=== PATIENT | female | born 1955 | race Caucasian/White ===

== ENCOUNTER 2017-06-16 09:09 | Day surgery (SDC) | payer MEDICAID ==
[2017-06-16] MEDS ORDERED: PROPOFOL 10 MG/ML VIAL IV ONE (14:29)
[2017-06-16] MEDS ORDERED: LIDOCAINE 2% MDV (20MG/ML) 20ML VIAL IV ONE (14:29)
--- NOTE | 2017-06-19 12:30 | Operative Note ---
DATE OF SURGERY: 06/16/2017 SURGEON: Yao Zapata MD OPERATION: 1. ESOPHAGOGASTRODUODENOSCOPY. 2. COLONOSCOPY. INDICATIONS: This is a 62-year-old female with a history of early satiety and abdominal pain who had blood in the stool and now presented for both esophagogastroduodenoscopy and colonoscopy. POSTOPERATIVE DIAGNOSES: 1. Mild Z line irregularity. 2. Gastric bezoar. 3. Gastritis. 4. Normal duodenum. 5. Left-sided colonic diverticulosis. 6. Grade 2 internal hemorrhoids. ANESTHESIA: Sedation is per Anesthesia. Pulse oximetry was monitored throughout the procedures to maintain O2 saturation of 90% or greater. Supplemental oxygen was administered via nasal cannula. Cardiac and vital signs were monitored throughout the duration of the procedures, and they were stable. The procedures of esophagogastroduodenoscopy and colonoscopy and risks and benefits of the procedures, including the risk of bleeding and perforation, among others, were explained to the patient who voiced understanding and desired to have the procedures done. Physical examination was performed, and the patient was found stable for sedation. PROCEDURE: The patient was placed in the left lateral position. Sedation was initiated. A plastic bite block was inserted into the oral cavity. The Olympus VIH152 gastroscope was introduced into the oral cavity and advanced to the proximal esophagus without difficulty. The esophageal mucosa was carefully examined upon introduction of the gastroscope. The proximal, mid, and distal esophageal mucosa appeared normal. There was an irregular Z line that was noted. The gastroscope was then advanced into the stomach, and surveillance of the stomach revealed a large amount of gastric bezoar in the stomach with erythema involving the gastric body and antrum. The gastroscope was then advanced to the descending duodenum without difficulty. There was no gastric outlet obstruction noted. The duodenal bulb and descending duodenum appeared normal. The gastroscope was then withdrawn into the stomach and retroflexion was performed. Food remnant was noted in the gastric fundus. The gastroscope was then straightened and withdrawn while carefully examining the gastric and esophageal mucosa. No other lesions noted. Multiple duodenal and gastric biopsies were obtained. She remained with stable vital signs and was repositioned for colonoscopy. A digital rectal exam was performed and showed some mild external hemorrhoids with no palpable rectal masses. An Olympus PCF-180AL colonoscope was then inserted into the rectum under direct visualization. It was advanced to the cecum without difficulty. The ileocecal valve and appendiceal orifice were identified and photographed. The colonic mucosa was carefully examined upon introduction of the colonoscope. There were scattered diverticula noted in the sigmoid and descending colon. There were no other lesions noted. The colonoscope was then advanced to the distal ileum and it was inspected for about 10 cm and it appeared normal. The colonoscope was then withdrawn while carefully examining the colonic mucosal surfaces. No other lesions were noted. Multiple random biopsies were obtained. In the rectum, retroflexion was performed and grade 2 internal hemorrhoids were noted. The colonoscope was then withdrawn and the procedures were terminated. She remained with stable vital signs and was transferred to the recovery room. RECOMMENDATIONS: 1. The patient should be on a high-fiber diet. 2. The patient is to have a repeat colonoscopy in 3 years because of the suboptimal bowel preparation. 3. I will obtain gastric emptying studies. 4. I will see her in the office. Thank you for allowing me to participate in the care of your patient. CC: Trena MURPHY
== END 2017-06-16 11:02 | disposition home or self-care (01) ==
LOC: HOP 09:09
PROVIDERS: ATTEND Internal Medicine Gastroenterology
DX: K31.89 Other diseases of stomach and duodenum (principal); K92.1 Melena; T18.2XXA Foreign body in stomach, initial encounter; K29.70 Gastritis, unspecified, without bleeding; K57.30 Diverticulosis of large intestine without perforation or abscess without bleeding; K64.1 Second degree hemorrhoids; I10 Essential (primary) hypertension; K21.9 Gastro-esophageal reflux disease without esophagitis

== ENCOUNTER 2017-08-17 06:35 | Inpatient (IN) | payer MEDICAID ==
[~2017-08-17 06:35] MED LIST: ACETAMINOPHEN 1,000 MG/100 ML BTL IV ONE; CEFAZOLIN 2 Gram 2 GM/50 ML BAG IVPB ONE; FAMOTIDINE 20MG TABLET PO ONE; MECLIZINE 25 MG TABLET PO ONE; METOCLOPRAMIDE 10 MG TABLET PO ONE
[2017-08-17] MEDS ORDERED: AL HYDROX/MAG HYDROX 30ML UD PO PRN (11:30)
[2017-08-17] MEDS ORDERED: TRAMADOL HCL 50 MG TABLET PO PRN (11:30)
[2017-08-17] MEDS ORDERED: SENNOSIDES/DOCUSATE SODIUM UD CAPSULE PO PRN (11:30)
[2017-08-17] MEDS ORDERED: DIPHENHYDRAMINE HCL 25 MG CAPSULE PO PRN (11:30)
[2017-08-17] MEDS ORDERED: ZOLPIDEM TARTRATE 5 MG TABLET PO PRN (11:30)
[2017-08-17] MEDS ORDERED: MAGNESIUM HYDROXIDE 30 ML UDC PO PRN (11:30)
[2017-08-17] MEDS: RINGERS SOLUTION,LACTATED 1,000 ML IV SCH (11:30)
[2017-08-17] MEDS ORDERED: METOCLOPRAMIDE HCL 10 MG/2 ML VIAL IVP PRN (11:30)
[2017-08-17] MEDS ORDERED: RINGERS SOLUTION,LACTATED 1,000 ML IV PRN (12:47)
[2017-08-17] MEDS ORDERED: TRANEXAMIC ACID 1,000 MG in 0.9 % SODIUM CHLORIDE 100ML 100 ML IVPB ONE (14:00)
[2017-08-17] MEDS: ACETAMINOPHEN 1,000 MG/100 ML BTL IV SCH ×2 (14:48→20:41)
[2017-08-17] MEDS ORDERED: BUPIVACAINE LIPOSOME 266MG/20ML VIAL IV ONE (14:59)
[2017-08-17] MEDS ORDERED: BUPIVACAINE 0.75% W/EPI MPF 30ML VIAL IVP ONE (14:59)
[2017-08-17] MEDS ORDERED: TRANEXAMIC ACID 1,000 MG/10 ML ML IV ONE (14:59)
[2017-08-17] MEDS: OXYCODONE HCL 5 MG TABLET PO PRN (15:01)
[2017-08-17] MEDS ORDERED: *PACU ONLY* KETAMINE HCL 10 MG/ML (20ML) VIAL IV ONE (15:23)
[2017-08-17] MEDS ORDERED: PROPOFOL 10 MG/ML VIAL IV ONE (15:23)
[2017-08-17] MEDS ORDERED: MIDAZOLAM HCL 2MG/2ML VIAL IV ONE (15:23)
[2017-08-17] MEDS ORDERED: HYDROMORPHONE HCL 2 MG/ML VIAL IV ONE (15:23)
[2017-08-17] MEDS: CEFAZOLIN 2 Gram 2 GM/50 ML BAG IVPB SCH (17:15)
--- NOTE | 2017-08-17 17:15 | Rehab Evaluation ---
Patient Information - Patient Information Diagnosis: OA Left Knee Ordered Treatment: PT Evaluate and Treat Status: Initial Evaluation Surgery: Yes (L TKA) Date of Surgery: 08/17/17 History: Detail Past Medical/Surgical Hx: PAST MEDICAL/SURGICAL HISTORY Surgery to Affected Area? Yes Recent Surgery? Past Surgical History lf knee surgery hysterectomy ovarian tumor sharron CATS brain aneurysm rt foot spur sx PMH - Respiratory Hx Respiratory Disorders Yes Hx Bronchitis Yes: x1 Hx Pneumonia Yes Comment: Quit smoking 3 yrs ago; 1ppdx 45 years PMH - Cardiovascular Hx Cardiovascular Disorders Yes Hx Hypertension Yes Exercise Tolerance Fair Comment: high cholesterol PMH - Neuro Hx Neurological Disorders Yes Hx Seizures Yes: after brain sx Comment: brain aneurysm x2 in 1998 with stm loss PMH - GI Hx Gastrointestinal Disorders Yes Hx Gastroesophageal Reflux Yes Hx Hepatitis/Jaundice Yes: at age 5 Comment: c/o slight burning mid epigastric PMH - Hx Genitourinary Disorders Yes Hx Age of Menopause 48 Patient No Hx Bladder Problem Yes: overactive bladder Comment: 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 PMH - Endocrine Hx Endocrine Disorders No PMH - Musculoskeletal Hx Musculoskeletal Disorders No Hx Arthritis Yes: left knee Comment: n/a PMH - Psych Hx Psychiatric Problems No Hx Depression Yes Major Depressive Episode Yes Comment: Depression 2013 after of nephew, daughter PMH - Hematology/Oncology Hx Hematology/Oncology No Disorders Hx Bruising Yes: bruises easily Social History: Detail (Pt. rates her current pain at 6/10 in her L knee, but reports she was given pain medication right before PT came in. Pt. reports she lives in a 1 story ranch style home with three steps with no hand railing to enter in from the garage and then one more step to enter into the kitchen. The patient reports she has a standard tub and shower and that she has to step over the tub to get into the shower. The pt. reports she will be borrowing a shower chair from a friend. The pt. states she does not have an elevated toilet seat or grab bars in the shower or next to the toilet. The pt. reports she has a walker, but is unsure what kind of walker it is when asked. The pt. is and reports her and other family/neighbors will be around to help as necessary. The pt. reports she does not use oxygen at home. 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 Pt. was left supine with CPM, IPCs, 2L of oxygen, and cold pack hooked up. Call light was made available and nursing was notified.) Subjective Information - Subjective Information Per Patient (See social history.) Objective Data - Pain Pain Present: Yes Pain Intensity: 6 Pain Scale Used: Numeric (1 - 10) - Mental Status Patient Orientation: Oriented x3 - Visual Perception Appears within normal limits for therapeutic activities - ROM Other (UE AROM was WNL. R LE AROM was WFL. L LE was not assessed at this time.) - Strength/Tone Other (Bilateral UEs are WFL for using her walker. LEs were not tested at this time. Pt. performed I SLR with the operative LE when transitioning the leg back into the CPM.) - Coordination Appears within normal limits for therapeutic activities - Bed Mobility Needs Assist (Pt. required the use of the overhead trapeze to scoot up and down in bed. PT provided min assist x1 to guard pt.'s L LE to ensure safe movements were made. Pt. grabbed onto PTs hand to help pull herself up for a supine to sit transfer, but was able to independently use the foot behind hook method to swing her L LE to the side of the bed to be able to sit up on the edge of the bed. Once back in bed, the pt. required the use of the trapeze to help her scoot up in bed and to assist lifting herself so the CPM machine could be repositioned.) - Transfers Independent (Pt. was able to complete sit to stand transfer independently with verbal cueing to push up with one hand on the bed and the other on the walker for a safe transfer. Pt. completed an independent sit to stand and stand to sit transfer onto and off the toilet as well as back onto her bed. Pt. was able to independently use the hook behind swing method to get her L LE back into bed with minimal assist x1 of the PT guarding the L LE.) - Balance Balance Sitting: Good (Sitting balance was good, but the patient reported slight dizziness upon sitting up from the supine position for about 5 seconds. Pt. dropped to 88% O2 sat with room air while supine and was given nasal cannula with 2L O2 throughout tx session, and she remained at 95% O2 saturation. ) Balance Standing: Good (Standing balance was good, but the pt. did report slight dizziness upon standing that lasted about 5 seconds.) - Sensation Intact - Gait Detail (Pt. was able to ambulate to and from the toilet independently with CGA x1 with the use of a front wheeled walker. Pt. required verbal cueing to know which leg she should lead with when ambulating with the walker.) - ADL's/IADL's Detail (Pt. I donned and doffed her undergarment.) - Special Tests No Therapy Assessment - Therapy Assessment Detail (Pt. exhibited slight dizziness upon sitting up and standing, gait impairments, balance impairments secondary to her surgery, pain in the L knee, bed mobility/transfer assistance, and the inability to correctly verbalize all precautions and how to correctly use her assistive device. Pt. will benefit from inpatient PT to help improve these impairments and meet her goals so she can be discharged from IP PT services.) Patient Education - Patient Education Teaching Topic: Equipment Use, Exercise/Activity, Precautions Response: Verbalize Understanding Teaching Method: Discussion Teaching Recipient: Patient Barriers To Learning: None Problem List - Problem List Physical Therapy Problem List: Detail (1. Left knee pain 2. Dizziness upon inital standing and sitting 3. Required ssistance with bed mobility/transfers 4. Gait impairments 5. Balance deficits secondary to her surgery 6. Inability to verbalize understanding of surgery precautions and how to correctly use her AD with ambulation.) Goals - Goals Physical Therapy Goals: 1. Pt. will verbalize understanding of her surgery precautions. 2. Pt. will verbalize understanding and demonstrate how to correctly use her assistive device with ambulation. 3. Pt. will safely and independently ambulate at least 100ft with the assistive device she will be using at home. 4. Pt. will safely and independently ascend/descend three stairs with the assistance from her AD. 5. Pt. will report no dizziness upon sitting up from a supine position and upon standing from a seated position. 6. Pt. will verbalize and demonstrate understanding of her HEP. 7. Pt. will safely and independently demonstrate bed mobilty and all transfers. Prognosis - Prognosis Good Plan - Plan Physical Therapy Plan: Pt. will be seen 1-2x/day Monday-Monday for inpatient PT. Treatment will include bed mobility/transfer training, gait training, stair training, and pt. education on her precautions and how to correctly use her AD.
[2017-08-17] MEDS ORDERED: FONDAPARINUX 2.5 MG/0.5 ML SYR SQ SCH (18:00)
[2017-08-17] MEDS: ONDANSETRON HCL IV 4 MG/2 ML VIAL IVP PRN (18:46)
[2017-08-18] MEDS: OXYCODONE HCL 5 MG TABLET PO PRN ×2 (01:14→06:31)
[2017-08-18] MEDS: CEFAZOLIN 2 Gram 2 GM/50 ML BAG IVPB SCH ×2 (01:54→09:12)
[2017-08-18] MEDS: ACETAMINOPHEN 1,000 MG/100 ML BTL IV SCH (02:44)
[2017-08-18 06:56] LABS: HEMATOCRIT 34.8 % (35.0-47.0); HEMOGLOBIN 10.7 gm/dl (11.6-16.0); MEAN CELL VOLUME 91.3 fl (81-97); MEAN CORPUSCULAR HGB CONC 30.7 g/dl (32-36); MEAN PLATELET VOLUME 9.9 fl (7.4-10.4); PLATELET COUNT 243 K/uL (130-400); RED BLOOD COUNT 3.81 M/uL (3.80-5.40); RED CELL DISTRIBUTION WIDTH 13.4 % (11.5-14.5)
[2017-08-18] MEDS ORDERED: PATIENT OWN MED: OMEPRAZOLE 40 MG PO SCH (07:00)
[2017-08-18] MEDS: TRAMADOL HCL 50 MG TABLET PO PRN ×2 (07:52→14:58)
[2017-08-18] MEDS: HYDROMORPHONE HCL 1 MG/ML CPJ IVP PRN ×2 (07:56→10:08)
[2017-08-18] MEDS: RINGERS SOLUTION,LACTATED 1,000 ML IV SCH (09:04)
[2017-08-18] MEDS: ONDANSETRON HCL IV 4 MG/2 ML VIAL IVP PRN ×2 (09:39→13:05)
[2017-08-18] MEDS ORDERED: PATIENT OWN MED: LOSARTAN 50 MG PO SCH (10:00)
[2017-08-18] MEDS ORDERED: ACETAMINOPHEN 325 MG TAB PO PRN (11:30)
[2017-08-18] MEDS ORDERED: OXYCODONE/APAP 7.5MG/325MG TABLET PO PRN (11:30)
--- NOTE | 2017-08-18 12:30 | Operative Note ---
DATE OF SURGERY: 08/17/2017 Surgeon: Suleiman Aldana DO PREOPERATIVE DIAGNOSIS: Primary osteoarthritis of the left knee. POSTOPERATIVE DIAGNOSIS: Primary osteoarthritis of the left knee. OPERATION: Left total knee arthroplasty. DESCRIPTION OF PROCEDURE: This 62-year-old female was taken to the operating room and placed in the supine position on the operating room table. A spinal anesthetic was administered by the department of anesthesia. The left lower extremity was elevated. It was prepped with Hibiclens and draped in the usual sterile fashion. It was exsanguinated and the tourniquet inflated to 300 mmHg. All scrub personnel wore personal isolation suits. An anterior longitudinal midline incision was made followed by a medial parapatellar arthrotomy incision. An intracondylar drill hole was made for the intramedullary alignment elizabeth, and a 5-degree valgus 9 mm cut was made in the distal femur. The wafer of bone was removed. The sizing jig was affixed and a size 62 was seen to be the appropriate size in the anterior-posterior dimension; however, too wide in the medial-lateral direction. Therefore, the pin sites were moved 2 mm anteriorly and a size 60. The 4-in-1 cutting block was then pinned in 3 degrees of external rotation. The appropriate cuts were made. We then directed our attention to the proximal tibia, and an extramedullary alignment guide was used to cut the proximal tibia referencing a 10 mm cut off the lateral tibial plateau. After appropriate rotational alignment, a 3-degree posterior slope cut was made, and the wafer of bone was removed. Remnants of the menisci and osteophytes were removed from the posterior aspect of the joint. The tibia was sized to a size 67, and the stem punch was used. The patella was then cut and restored to anatomic height. Subsequently, the trial components were inserted and a size 14 tibial bearing was seen to be the appropriate size with the knee being taken through range of motion and good stability being identified. All trial components were then removed, and the wound copiously irrigated with pulse lavage, lactated Ringer's solution. The patient's bony surfaces were dried. All components were cemented and excess cement removed after the insertion of each component. Initially the tibial baseplate was cemented into place followed by the insertion of the tibial bearing. The femoral component subsequently inserted and this was followed by the patella, which was a 31 x 6.2 mm. The knee was again taken through range of motion with excellent stability with the components being identified. The joint copiously irrigated with lactated Ringer's solution. Exparel was injected in the posterior, medial, and lateral corners of the joint, and once the cement had hardened, the remainder was injected into the periosteum and joint capsule of the proximal tibia and distal femur. A drain was placed through a separate stab incision. The arthrotomy incision was then closed with a #2 Vicryl, subcutaneous tissue closed with 0 Vicryl, and the skin was stapled. Sterile dressings with a Polar pack were applied. The patient was taken to the recovery room in satisfactory condition. GROSS PATHOLOGY: This patient demonstrated advanced medial compartment osteoarthritis with grade 2 changes noted laterally and grade 3 changes noted at the patellofemoral articulation. Full-thickness articular cartilage loss noted medially on the femur. Final components inserted were a [employer] size 60 cruciate retaining femur, a 67 tibia, a 14 mm anterior stabilized D1 bearing, and a 34 x 6.2 mm patella was used. JEFFREY
--- NOTE | 2017-08-18 12:35 | Physical Therapy Tx Note ---
Physical Therapy Tx Note - Treatment Note Tolerated: Good Total Time Spent With Patient: 30 Physical Therapy Tx Note: Detail (Pt. reports pain in left knee at 6/10 right now. Pt. reports she was feeling nauseous and drowsy upon sitting up. The pt.'s oxygen saturation was checked and was at 87, but got as low as 83. After a few deep breathes the oxygen returned back to normal at 98. The pt. was given more pain medication before starting PT. The pt. completed an independent sit to stand transfer with a front-wheeled walker. Pt. independently ambulated 110 ft CGA x1 with a front-wheeled walker. Once back in her room, the pt. completed a stand to sit transfer independently into her chair. The pt reported she still felt drowsy, but also a little light headed after ambulation. The pt.'s oxygen saturation was checked again and was at 87. The pt. performed diaphragmatic breathing exercises and got the reading back up to 98. The pt. completed ther ex of quad sets 1x10, glute sets 1x10, hip ADD pillow squeezes 1x10, hip ABD pillow press 1x10. The pt. required a lot of verbal cues to continue taking deep breaths and to not hold her breath with exercise. The pt. returned back to bed after completion of her exercises independently CGA x1 with front-wheeled walker. Once sitting on the edge of her bed, pt. used the hook behind method to lift her foot into bed, but required the overhead trapeze to help scoot up in bed. Pt. required min assist x1 to help assist L LE into CPM machine. Oxygen saturation was tested once more and was at 87. At this time PT felt it was necessary to put pt. back onto 2L of oxygen to help maintain her levels at the mid-upper 90's. Pt. reported her pain at a 4-5/10 after treatment. Pt. was left supine in bed with the CPM, cold pack, and 2L of oxygen hooked up. The call light was made available and nursing was notified. Continue per POC and try to have pt. complete stairs this afternoon.) Physical Therapy Problem List: Detail (1. Left knee pain 2. Dizziness upon inital standing and sitting 3. Required assistance with bed mobility/transfers 4. Gait impairments 5. Balance deficits secondary to her surgery 6. Inability to verbalize understanding of surgery precautions and how to correctly use her AD with ambulation.) Physical Therapy Goals: 1. Pt. will verbalize understanding of her surgery precautions. 2. Pt. will verbalize understanding and demonstrate how to correctly use her assistive device with ambulation. (MET). 3. Pt. will safely and independently ambulate at least 100ft with the assistive device she will be using at home. (MET). 4. Pt. will safely and independently ascend/descend three stairs with the assistance from her AD. 5. Pt. will report no dizziness upon sitting up from a supine position and upon standing from a seated position. 6. Pt. will verbalize and demonstrate understanding of her HEP. 7. Pt. will safely and independently demonstrate bed mobilty and all transfers. Prognosis: Good Physical Therapy Plan: Pt. will be seen 1-2x/day Monday-Monday for inpatient PT. Treatment will include bed mobility/transfer training, gait training, and stair training.
--- NOTE | 2017-08-18 12:56 | Rehab Evaluation ---
Patient Information - Patient Information Diagnosis: OA Left Knee Ordered Treatment: OT Evaluate and Treat Status: Initial Evaluation Surgery: Yes (L TKA) Date of Surgery: 08/17/17 Past Medical/Surgical Hx: PAST MEDICAL/SURGICAL HISTORY Surgery to Affected Area? Yes Recent Surgery? Past Surgical History lf knee surgery hysterectomy ovarian tumor luis carlos CATS brain aneurysm rt foot spur sx PMH - Respiratory Hx Respiratory Disorders Yes Hx Bronchitis Yes: x1 Hx Pneumonia Yes Comment: Quit smoking 3 yrs ago; 1ppdx 45 years PMH - Cardiovascular Hx Cardiovascular Disorders Yes Hx Hypertension Yes Exercise Tolerance Fair Comment: high cholesterol PMH - Neuro Hx Neurological Disorders Yes Hx Seizures Yes: after brain sx Comment: brain aneurysm x2 in 1998 with stm loss PMH - GI Hx Gastrointestinal Disorders Yes Hx Gastroesophageal Reflux Yes Hx Hepatitis/Jaundice Yes: at age 5 Comment: c/o slight burning mid epigastric PMH - Hx Genitourinary Disorders Yes Hx Age of Menopause 48 Patient No Hx Bladder Problem Yes: overactive bladder Comment: 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 PMH - Endocrine Hx Endocrine Disorders No PMH - Musculoskeletal Hx Musculoskeletal Disorders No Hx Arthritis Yes: left knee Comment: n/a PMH - Psych Hx Psychiatric Problems No Hx Depression Yes Major Depressive Episode Yes Comment: Depression 2013 after of nephew, daughter PMH - Hematology/Oncology Hx Hematology/Oncology No Disorders Hx Bruising Yes: bruises easily Premorbid Status: Detail (Pt lives with significant other in a 1 story house with basement, she will be staying on the main floor. She has 3 steps at the entrance, no hand railing. She has a tub/shower combination with hand held shower, no grab bar. She will be using a tub seat. She has a standard height toilet, no grab bar. Her and S.O. share home mgmt, meal prep and laundry. She has a 2 wheeled walker and crutches.) Social History: Detail (Pt has a supportive significant other and other family nearby.) Precautions: [place], Fall - Time With Patient Total Time Spent With Patient (Min): 60 Treatment Procedures: Detail (OT eval low complexity) Subjective Information - Subjective Information Per Patient Objective Data - Pain Pain Present: Yes (4/10 pain.) - Mental Status Patient Orientation: Oriented x3 - Visual Perception Appears within normal limits for therapeutic activities (Pt wears glasses.) - ROM Within normal limits (Luis Carlos UE AROM WNL) - Strength/Tone Within normal limits (Luis Carlos UE strength WNL.) - Coordination Appears within normal limits for therapeutic activities - Bed Mobility Needs Assist (Min assist with supine to sit, Ind with sit to supine.) - Transfers Independent (Ind with sit to stand from EOB.) - Balance Balance Sitting: Good Balance Standing: Good - Sensation Intact - Gait Detail (Pt ambulating in room with 2 wheeled walker.) - ADL's/IADL's Detail (Pt educated and able to demonstrate Ind with total body dressing using modified dressing techniques. Pt reports S.O. will assist with anything she needs help with at home.) Therapy Assessment - Therapy Assessment Detail (Pt is safe and Ind with total body dressing using modified dressing techniques.) Problem List - Problem List Physical Therapy Problem List: Detail (1. Left knee pain 2. Dizziness upon inital standing and sitting 3. Required ssistance with bed mobility/transfers 4. Gait impairments 5. Balance deficits secondary to her surgery 6. Inability to verbalize understanding of surgery precautions and how to correctly use her AD with ambulation.) Occupational Therapy Problem List: Detail (No current OT problems identified.) Goals - Goals Physical Therapy Goals: 1. Pt. will verbalize understanding of her surgery precautions. 2. Pt. will verbalize understanding and demonstrate how to correctly use her assistive device with ambulation. (MET). 3. Pt. will safely and independently ambulate at least 100ft with the assistive device she will be using at home. (MET). 4. Pt. will safely and independently ascend/descend three stairs with the assistance from her AD. 5. Pt. will report no dizziness upon sitting up from a supine position and upon standing from a seated position. 6. Pt. will verbalize and demonstrate understanding of her HEP. 7. Pt. will safely and independently demonstrate bed mobilty and all transfers. Occupational Therapy Goals: No current OT goals identified at this time. Prognosis - Prognosis Good Plan - Plan Physical Therapy Plan: Pt. will be seen 1-2x/day Monday-Monday for inpatient PT. Treatment will include bed mobility/transfer training, gait training, stair training, and pt. education on her precautions and how to correctly use her AD. Occupational Therapy Plan: No further IP OT recommended at this time. Thank you for this referral.
--- NOTE | 2017-08-18 14:10 | Discharge Summary ---
DATE OF ADMISSION: 08/17/2017 DATE OF DISCHARGE: 08/18/2017 ADMITTING DIAGNOSIS: Osteoarthritis of the left knee. DISCHARGE DIAGNOSIS: Osteoarthritis of the left knee. OPERATIVE PROCEDURE: Elective left total knee arthroplasty. DESCRIPTION: This 62-year-old female was admitted to the hospital for elective left total knee arthroplasty and tolerated the operative procedure well. The drain was removed the first postoperative day and she progressed satisfactorily with physical therapy. She will be discharged with instructions to wear her PABLO hose during the day and remove them at night. She will have outpatient physical therapy. She is to take aspirin 325 mg daily for 2 weeks. She was given a prescription for Percocet 7.5/325, #80, 1-2 every 6 hours as necessary for pain. Routine wound care instructions were given. She will follow up in 2 weeks. Should she have any problems prior to being seen, she was instructed to call my office. JEFFREY
--- NOTE | 2017-08-18 15:37 | Physical Therapy Tx Note ---
Physical Therapy Tx Note - Treatment Note Tolerated: Fair Total Time Spent With Patient: 15 Physical Therapy Tx Note: Detail (The patient was in bed when PT arrived. The patient complained of nausea and level 7 knee pain using 0-10 pain scale. The patient's resting O2 sat. levels were 92 and above. the patient ambulated with wheeled walker a distance of 40 feet x 1 WBAT on the L LE. The patient's O2 sat. level dropped to 75. The patient sat and rested and completed deep breathing for 1 minute. O 2 sat. level improved to 90 plus. The patient ambulated on 3 stairs with one railing and std. cane with supervision for safety of 1 WBAT on the L LE . Patient's was present to observe. The patient's stated he would get her a cane. The patient was able to complete proper technique with one verbal cue.) Physical Therapy Problem List: Detail (1. Left knee pain 2. Dizziness upon inital standing and sitting 3. Required assistance with bed mobility/transfers 4. Gait impairments 5. Balance deficits secondary to her surgery 6. Inability to verbalize understanding of surgery precautions and how to correctly use her AD with ambulation.) Physical Therapy Goals: 1. Pt. will verbalize understanding of her surgery precautions.(MET). 2. Pt. will verbalize understanding and demonstrate how to correctly use her assistive device with ambulation. (MET). 3. Pt. will safely and independently ambulate at least 100ft with the assistive device she will be using at home. (MET). 4. Pt. will safely and independently ascend/descend three stairs with the assistance from her AD. (MET). 5. Pt. will report no dizziness upon sitting up from a supine position and upon standing from a seated position. 6. Pt. will verbalize and demonstrate understanding of her HEP. 7. Pt. will safely and independently demonstrate bed mobilty and all transfers. Physical Therapy Plan: All inpatient PT goals were met. The patient is discharged from inpatient PT .
== END 2017-08-18 15:50 | disposition home or self-care (01) | DRG 470 ==
LOC: MEDSURG 06:35
PROVIDERS: ADMIT Orthopaedic Surgery; ATTEND Orthopaedic Surgery
PROC: 0SRD069 Replacement of Left Knee Joint with Oxidized Zirconium on Polyethylene Synthetic Substitute, Cemented, Open Approach (ICD-10-PCS; principal; 2017-08-17 09:30)
DX: M17.12 Unilateral primary osteoarthritis, left knee (principal); I10 Essential (primary) hypertension
CPT/HCPCS: 85025; 93005; 93010; 94761; 97110; 97116; 97165; 97530; J1170; J2405; J2765; J3490; J7120

== ENCOUNTER 2018-06-16 15:53 | Emergency (ER) | payer MEDICAID ==
[2018-06-16 16:19] LABS: URINE APPEARANCE CLEAR; URINE BILIRUBIN NEGATIVE (NEGATIVE); URINE BLOOD MODERATE (NEGATIVE); URINE COLOR ORANGE; URINE KETONE NEGATIVE (NEGATIVE); URINE LEUKOCYTE ESTERASE TRACE (NEGATIVE); URINE NITRITE POSITIVE (NEGATIVE)
--- NOTE | 2018-06-16 16:26 | Emergency Department Record ---
History of Present Illness - General Chief complaint: Female Urogenital Problem Stated complaint: UTI Time Seen by Provider: 06/16/18 16:20 Source: Patient, RN notes reviewed Mode of Arrival: Ambulatory - History of Present Illness Initial comments: urgency and frequency and burning on urination and she is taking pyridium with orange urine. This started 2 days ago and she has had this happen before. started on detrol 1mg BID by urology. Onset/Timin -: Days(s) Severity: Moderate Severity scale (1-10): 8 Quality: Aching Consistency: Constant, Intermittent - Related Data Previous Rx's Medication Instructions Recorded Ciprofloxacin HCl [Cipro] 500 mg PO Q12HR #20 tablet 06/16/18 Allergies Allergy/AdvReac Type Severity Reaction Status Date / Time latex Allergy BLISTERS Verified 06/16/18 16:06 codeine AdvReac Unknown pt states Verified 06/16/18 16:06 "makes her feel crazy" morphine AdvReac Unknown pt "feels Verified 06/16/18 16:06 crazy" Travel Screening - Travel/Exposure Within Last 30 Days Have you traveled within the last 30 days?: No - Travel/Exposure Within Last Year Have you traveled outside the [place] in the last year?: No - Additonal Travel Details Have you been exposed to anyone with a communicable illness?: No - Travel Symptoms Symptom Screening: None Review of Systems Reviewed: No additional complaints except as noted below Constitutional: Reports: As per HPI. Denies: Chills, Fever, Malaise, Night sweats, Weakness, Weight change Eyes: Reports: As per HPI. Denies: Eye discharge, Eye pain, Photophobia, Vision change ENT: Reports: As per HPI. Denies: Congestion, Dental pain, Ear pain, Epistaxis , Hearing loss, Throat pain Respiratory: Reports: As per HPI. Denies: Cough, Dyspnea, Hemoptysis, Stridor, Wheezes Cardiovascular: Reports: As per HPI. Denies: Arrhythmia, Chest pain, Dyspnea on exertion, Edema, Murmurs, Orthopnea, Palpitations, Paroxysmal nocturnal dyspnea, Rheumatic Fever, Syncope Endocrine: Reports: As per HPI. Denies: Fatigue, Heat or cold intolerance, Polydipsia, Polyuria Gastrointestinal: Reports: As per HPI. Denies: Abdominal pain, Constipation, Diarrhea, Hematemesis, Hematochezia, Melena, Nausea, Vomiting Genitourinary: Reports: As per HPI, Dysuria, Frequency, Urgency. Denies: Abnormal menses, Discharge, Dyspareunia, Hematuria, Incontinence, Retention Musculoskeletal: Reports: As per HPI. Denies: Arthralgia, Back pain, Gout, Joint swelling, Myalgia, Neck pain Skin: Reports: As per HPI. Denies: Bruising, Change in color, Change in hair/ nails, Lesions, Pruritus, Rash Neurological: Reports: As per HPI. Denies: Abnormal gait, Confusion, Headache, Numbness, Paresthesias, Seizure, Tingling, Tremors, Vertigo, Weakness Psychiatric: Reports: As per HPI. Denies: Anxiety, Auditory hallucinations, Depression, Homicidal thoughts, Suicidal thoughts, Visual hallucinations Hematological/Lymphatic: Reports: As per HPI. 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 - ENDOCRINE Hx Endocrine Disorders: No - MUSCULOSKELETAL Hx Musculoskeletal Disorders: No Hx Arthritis: Yes (left knee) Comment:: n/a - PSYCH Hx Psych Problems: No Hx Depression: Yes Comment:: Depression 2013 after of nephew, daughter - HEMATOLOGY/ONCOLOGY Hx Hematology/Oncology Disorders: No Hx Bruising: Yes (bruises easily) Family Medical History Any Significant Family History?: Yes Family Hx Comment (NOT TO BE USED IN PLACE OF ITEMS BELOW): cancer, heart disease, thyroid Hx Cancer: Father, Mother, Brother/Sister Physical Exam - General General Appearance: Alert, Oriented x3, Cooperative, No acute distress - Head Head exam: Normal inspection - Eye Eye exam: Normal appearance, PERRL Pupils: Normal accommodation - ENT ENT exam: Normal exam, Mucous membranes moist, Normal external ear exam, Normal orophraynx, TM's normal bilaterally Ear exam: Normal external inspection. negative: External canal tenderness Nasal Exam: Normal inspection. negative: Discharge, Sinus tenderness Mouth exam: Normal external inspection, Tongue normal Teeth exam: Normal inspection. negative: Dental caries Throat exam: Normal inspection. negative: Tonsillar erythema, Tonsillar exudate - Neck Neck exam: Normal inspection, Full ROM. negative: Tenderness - Respiratory Respiratory exam: Normal lung sounds bilaterally. negative: Respiratory distress - Cardiovascular Cardiovascular Exam: Regular rate, Normal rhythm, Normal heart sounds - GI/Abdominal GI/Abdominal exam: Soft, Normal bowel sounds. negative: Tenderness - Rectal Rectal exam: Deferred - exam: Deferred - Extremities Extremities exam: Normal inspection, Full ROM, Normal capillary refill. negative: Tenderness - Back Back exam: Reports: Normal inspection, Full ROM. Denies: Muscle spasm, Rash noted, Tenderness - Neurological Neurological exam: Alert, Normal gait, Oriented X3, Reflexes normal - Psychiatric Psychiatric exam: Normal affect, Normal mood - Skin Skin exam: Dry, Intact, Normal color, Warm Course Vital Signs 06/16/18 15:55 Temperature 97.6 F Pulse Rate 86 Respiratory 17 Rate Blood Pressure 176/96 Pulse Ox 95 Disposition Clinical Impression: UTI (urinary tract infection) Qualifiers: Urinary tract infection type: acute cystitis Hematuria presence: without hematuria Qualified Code(s): N30.00 - Acute cystitis without hematuria Disposition: Home, Self-Care Condition: (1) Good Instructions: Urinary Tract Infection in Women (ED) Additional Instructions: follow up with family Dr ct payan twice a day Prescriptions: Ciprofloxacin HCl [Cipro] 500 mg PO Q12HR #20 tablet Forms: Patient Portal Access Time of Disposition: 17:01 Quality - Quality Measures Quality Measures: N/A - Blood Pressure Screening Does Patient Have Any of the Following: No, Active Dx of HTN Blood Pressure Classification: Hypertensive Reading Systolic Measurement: 176 Diastolic Measurement: 96 Screening for High Blood Pressure: Patient Exclusion, Hx of HTN [G9744]
[2018-06-16 16:33] LABS: URINE EPITHELIAL CELLS 0 - 2 (FEW)
== END 2018-06-16 17:11 | disposition home or self-care (01) ==
LOC: ER 15:53
DX: N30.00 Acute cystitis without hematuria (principal); Z87.891 Personal history of nicotine dependence
CPT/HCPCS: 81001; 99282; 99283

== ENCOUNTER 2018-09-04 10:15 | Emergency (ER) | payer MEDICAID ==
--- NOTE | 2018-09-04 10:38 | Emergency Department Record ---
History of Present Illness - General Chief Complaint: Back Pain/Injury Stated Complaint: BACK PAIN Time Seen by Provider: 09/04/18 10:32 Source: Patient Mode of Arrival: Ambulatory - History of Present Illness Initial Comments: low back pain after twisting to get out of a car. She has tried tramadol few pills left. She has had a previous back pain in the past and she is ambulating and standing flexion to her ankles and slow to straighten up. Onset/Timin -: Days(s) Place: Home Severity: Moderate Severity scale (1-10): 9 Quality: Aching Consistency: Constant, Intermittent Improves With: None Worsens With: None Context: Bending, Turning/twisting - Related Data Previous Rx's Medication Instructions Recorded Cyclobenzaprine HCl [Flexeril] 10 mg PO TID #30 tablet 09/04/18 Naproxen [Naprosyn] 500 mg PO BID #30 tablet 09/04/18 Tramadol HCl 50 mg PO Q8H #9 tab 09/04/18 Allergies Allergy/AdvReac Type Severity Reaction Status Date / Time latex Allergy BLISTERS Verified 09/04/18 10:22 codeine AdvReac Unknown pt states Verified 09/04/18 10:22 "makes her feel crazy" morphine AdvReac Unknown pt "feels Verified 09/04/18 10:22 crazy" Travel Screening - Travel/Exposure Within Last 30 Days Have you traveled within the last 30 days?: No - Travel/Exposure Within Last Year Have you traveled outside the [place] in the last year?: No - Additonal Travel Details Have you been exposed to anyone with a communicable illness?: No - Travel Symptoms Symptom Screening: None Review of Systems Reviewed: No additional complaints except as noted below Constitutional: Reports: As per HPI. Denies: Chills, Fever, Malaise, Night sweats, Weakness, Weight change Eyes: Reports: As per HPI. Denies: Eye discharge, Eye pain, Photophobia, Vision change ENT: Reports: As per HPI. Denies: Congestion, Dental pain, Ear pain, Epistaxis , Hearing loss, Throat pain Respiratory: Reports: As per HPI. Denies: Cough, Dyspnea, Hemoptysis, Stridor, Wheezes Cardiovascular: Reports: As per HPI. Denies: Arrhythmia, Chest pain, Dyspnea on exertion, Edema, Murmurs, Orthopnea, Palpitations, Paroxysmal nocturnal dyspnea, Rheumatic Fever, Syncope Endocrine: Reports: As per HPI. Denies: Fatigue, Heat or cold intolerance, Polydipsia, Polyuria Gastrointestinal: Reports: As per HPI. Denies: Abdominal pain, Constipation, Diarrhea, Hematemesis, Hematochezia, Melena, Nausea, Vomiting Genitourinary: Reports: As per HPI. Denies: Abnormal menses, Discharge, Dyspareunia, Dysuria, Frequency, Hematuria, Incontinence, Retention, Urgency Musculoskeletal: Reports: As per HPI, Back pain. Denies: Arthralgia, Gout, Joint swelling, Myalgia, Neck pain Skin: Reports: As per HPI. Denies: Bruising, Change in color, Change in hair/ nails, Lesions, Pruritus, Rash Neurological: Reports: As per HPI. Denies: Abnormal gait, Confusion, Headache, Numbness, Paresthesias, Seizure, Tingling, Tremors, Vertigo, Weakness Psychiatric: Reports: As per HPI. Denies: Anxiety, Auditory hallucinations, Depression, Homicidal thoughts, Suicidal thoughts, Visual hallucinations Hematological/Lymphatic: Reports: As per HPI. 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 - ENDOCRINE Hx Endocrine Disorders: No - MUSCULOSKELETAL Hx Musculoskeletal Disorders: No Hx Arthritis: Yes (left knee) Comment:: shoulder surgery scheduled - PSYCH Hx Psych Problems: No Hx Depression: Yes Comment:: Depression 2013 after of nephew, daughter - HEMATOLOGY/ONCOLOGY Hx Hematology/Oncology Disorders: No Hx Bruising: Yes (bruises easily) Family Medical History Any Significant Family History?: Yes Family Hx Comment (NOT TO BE USED IN PLACE OF ITEMS BELOW): cancer, heart disease, thyroid Hx Cancer: Father, Mother, Brother/Sister Physical Exam - General General Appearance: Alert, Oriented x3, Cooperative, No acute distress - Head Head exam: Normal inspection - Eye Eye exam: Normal appearance, PERRL Pupils: Normal accommodation - ENT ENT exam: Normal exam, Mucous membranes moist, Normal external ear exam, Normal orophraynx, TM's normal bilaterally Ear exam: Normal external inspection. negative: External canal tenderness Nasal Exam: Normal inspection. negative: Discharge, Sinus tenderness Mouth exam: Normal external inspection, Tongue normal Teeth exam: Normal inspection. negative: Dental caries Throat exam: Normal inspection. negative: Tonsillar erythema, Tonsillar exudate - Neck Neck exam: Normal inspection, Full ROM. negative: Tenderness - Respiratory Respiratory exam: Normal lung sounds bilaterally. negative: Respiratory distress - Cardiovascular Cardiovascular Exam: Regular rate, Normal rhythm, Normal heart sounds - GI/Abdominal GI/Abdominal exam: Soft, Normal bowel sounds. negative: Tenderness - Rectal Rectal exam: Deferred - exam: Deferred - Extremities Extremities exam: Normal inspection, Full ROM, Normal capillary refill. negative: Tenderness - Back Back exam: Reports: Normal inspection, Full ROM. Denies: Muscle spasm, Rash noted, Tenderness - Neurological Neurological exam: Alert, Normal gait, Oriented X3, Reflexes normal - Psychiatric Psychiatric exam: Normal affect, Normal mood - Skin Skin exam: Dry, Intact, Normal color, Warm Course Vital Signs 09/04/18 10:16 Temperature 98.0 F Pulse Rate 79 Respiratory 20 Rate Blood Pressure 140/88 Pulse Ox 98 Disposition Clinical Impression: Lumbar strain Qualifiers: Encounter type: initial encounter Qualified Code(s): S39.012A - Strain of muscle, fascia and tendon of lower back, initial encounter Disposition: Home, Self-Care Condition: (1) Good Instructions: Low Back Strain (ED) Additional Instructions: follow up with primary provider in 3 to 7 days back stretch exercises demonstrated use naprosyn twice a day flexeril three times a day and if to sleepy use only at night or take one half pill at a time. Prescriptions: Cyclobenzaprine HCl [Flexeril] 10 mg PO TID #30 tablet Naproxen [Naprosyn] 500 mg PO BID #30 tablet Tramadol HCl 50 mg PO Q8H #9 tab Forms: Patient Portal Access Time of Disposition: 10:59 Quality - Quality Measures Quality Measures: N/A - Blood Pressure Screening Does Patient Have Any of the Following: No Blood Pressure Classification: Pre-Hypertensive BP Reading Systolic Measurement: 140 Diastolic Measurement: 88 Screening for High Blood Pressure: < Pre-Hypertensive BP, F/U Documented > [ [id number]] Pre-Hypertensive Follow-up Interventions: Referral to alternative/primary care provider.
[2018-09-04] MEDS ORDERED: KETOROLAC 60 MG/2 ML VIAL IM STA (10:44)
[2018-09-04] MEDS ORDERED: ORPHENADRINE CITRATE 60MG/2ML VIAL IM ONE (10:44)
[2018-09-04] MEDS ORDERED: NAPROXEN 250 MG TABLET PO ONE (11:00)
[2018-09-04] MEDS ORDERED: CYCLOBENZAPRINE 10MG TABLET PO ONE (11:00)
== END 2018-09-04 11:20 | disposition home or self-care (01) ==
LOC: ER 10:15
DX: S39.012A Strain of muscle, fascia and tendon of lower back, initial encounter (principal); W50.2XXA Accidental twist by another person, initial encounter; Y92.007 Garden or yard of unspecified non-institutional (private) residence as the place of occurrence of the external cause; I10 Essential (primary) hypertension; Z87.891 Personal history of nicotine dependence
CPT/HCPCS: 96372; 99283; J1885; J2360

== ENCOUNTER 2018-10-04 09:37 | Day surgery (SDC) | payer MEDICAID ==
[~2018-10-04 09:37] MED LIST changes: -ACETAMINOPHEN 1,000 MG/100 ML BTL IV ONE; -FAMOTIDINE 20MG TABLET PO ONE; -MECLIZINE 25 MG TABLET PO ONE; -METOCLOPRAMIDE 10 MG TABLET PO ONE
[2018-10-04] MEDS ORDERED: KETOROLAC 30 MG/ML VIAL IVP ONE (09:38)
[2018-10-04] MEDS ORDERED: DEXAMETHASONE 4 MG/ML 1ML VIAL IVP ONE ×2 (09:38)
[2018-10-04] MEDS ORDERED: LABETALOL HCL 5MG/ML, 20ML VIAL IV ONE (09:38)
[2018-10-04] MEDS ORDERED: PROPOFOL 10 MG/ML VIAL IV ONE (09:38)
[2018-10-04] MEDS ORDERED: EPINEPHRINE 1 MG/ML AMPUL SQ ONE (09:38)
[2018-10-04] MEDS ORDERED: BUPIVACAINE LIPOSOME/PF 133MG/10ML VIAL IV ONE (09:38)
[2018-10-04] MEDS ORDERED: MIDAZOLAM HCL 2MG/2ML VIAL IV ONE (09:38)
[2018-10-04] MEDS ORDERED: ONDANSETRON HCL IV 4 MG/2 ML VIAL IVP ONE (09:38)
[2018-10-04] MEDS ORDERED: FLUMAZENIL 1MG/10ML VIAL IV ONE (09:38)
[2018-10-04] MEDS ORDERED: SEVOFLURANE 250 ML INH ONE (09:38)
[2018-10-04] MEDS ORDERED: HYDROMORPHONE HCL 2 MG/ML VIAL IV ONE (09:38)
[2018-10-04] MEDS ORDERED: BUPIVACAINE 0.5% (5MG/ML) PF 30ML VIAL IVP ONE (09:38)
--- NOTE | 2018-10-05 08:20 | Operative Note ---
DATE OF SURGERY: 10/04/2018 Surgeon: Suleiman Aldana DO PREOPERATIVE DIAGNOSES: 1. Tear of the right rotator cuff. 2. Impingement syndrome, right shoulder. 3. Tear of the biceps tendon, right shoulder with dislocation. 4. Tear of the glenoid labrum, right shoulder. OPERATION: 1. Arthroscopic repair of the right rotator cuff. 2. Arthroscopic subacromial decompression and acromioplasty, right shoulder. 3. Arthroscopic biceps tenotomy of the right shoulder. 4. Arthroscopic debridement of the glenoid labrum, right shoulder. DESCRIPTION OF PROCEDURE: This 62-year-old female was taken to the operating room and placed in the supine position on the operating room table. General anesthetic was administered. She was placed in the beach chair position with all bony prominences well padded and head well secured. The right shoulder was prepped with Hibiclens and draped in the usual sterile fashion. A posterior portal was established in the glenohumeral joint and initial evaluation of the joint demonstrated normal appearance of the articular cartilage of the glenoid. Some superficial scuffing of the superior humeral head was identified but no areas of full-thickness articular cartilage loss were identified. The biceps tendon was seen to be markedly frayed and dislocated medially. There was a tear of the subscapularis as well as completely avulsed and retracted tears of the supraspinatus and infraspinatus. A biceps tenotomy was performed. Approximately 20% to 30% of the biceps tendon was all that was left to the attachment. The tendon was torn all the way down to the bicipital groove as far as I could see. Once this had been accomplished, the scope was then placed in the subacromial space and thorough subacromial decompression and acromioplasty were performed. We debrided the tuberosity. Significant retraction of the supraspinatus and infraspinatus tendons was identified. There was a V-shaped tear and we freed up as much of the torn tendon as possible. We were not really able to bring it down at its apex to the anatomical attachment site, so therefore we performed [id number] repair after debriding the edges. We felt we had reasonably good tendon but there was no question that the patient's tendon remained compromised with fraying. We debrided as much of what I felt was unhealthy tendon as possible. After placing 3 [id number] stiches, we cut the first two, the most medial ones, and the last one we used to pull traction down to the tuberosity and then this was then anchored with a 4.75 mm PushLock. This gave us excellent approximation of the rotator cuff and attachment down to the tuberosity. This was felt to be satisfactory and the wound was irrigated and suctioned after the sutures had been cut. The wounds closed with 4-0 nylon suture and sling was applied. The patient taken to the recovery room in satisfactory condition. GROSS PATHOLOGY: This patient demonstrated a V-shaped retracted tear of the rotator cuff. We debrided the poor tendon quality. Even though the repaired tendon was not entirely normal, it was felt that it would be sufficient to heal. The patient also had near-complete disruption of the biceps and marked fraying of the remaining portion, and it was released. Some fraying of the labrum was also identified. This was debrided with the rotating shaver as well. Very minimal degenerative changes of the articular cartilage near the insertion site of the rotator cuff was noted but chondroplasty was certainly not necessary, as this was extremely mild. Gross pathology included retraction of the rotator cuff, tear of the biceps, mild chondromalacia, and mild fraying of the superior labrum. The subscapularis also partially torn. CC: MARVIN Daly
== END 2018-10-04 13:40 | disposition home or self-care (01) ==
LOC: SUR 09:37
PROVIDERS: ATTEND Orthopaedic Surgery
DX: S43.431A Superior glenoid labrum lesion of right shoulder, initial encounter (principal); S46.211A Strain of muscle, fascia and tendon of other parts of biceps, right arm, initial encounter; M75.41 Impingement syndrome of right shoulder; I10 Essential (primary) hypertension; K21.9 Gastro-esophageal reflux disease without esophagitis
CPT/HCPCS: C9290; J0171; J1885; J2405

== ENCOUNTER 2018-10-08 10:51 | Observation (INO) | payer MEDICAID ==
[2018-10-08] MEDS ORDERED: IPRATROPIUM/ALBUTEROL (0.5MG/3MG) NEB INH ONE (11:18)
--- NOTE | 2018-10-08 11:18 | Emergency Department Record ---
History of Present Illness - General Chief Complaint: Shortness of breath Stated Complaint: SOB,CHEST HEAVINESS Time Seen by Provider: 10/08/18 10:57 Source: Patient, Family Mode of Arrival: Ambulatory Limitations: No limitations - History of Present Illness Initial Comments: The patient is here due to a 3 day hx of chest heaviness and mild coughing mainly when laying flat. She denies any fever, chest pain, or sputum production but does feel mildly SOB at times with the heaviness. The patient states the symptoms are worse when lying flat. The patient did have R shoulder rotator cuff surgery 4 days ago and has been ambulatory at home. She denies any leg pain or swelling. MD Complaint: Cough, Shortness of breath Onset/Timin -: Days(s) Associated Symptoms: Chest pain, Cough Treatments Prior to Arrival: None - Related Data Home Oxygen Therapy: No Home Medications Medication Instructions Recorded Confirmed Last Taken Oxycodone HCl/Acetaminophen 1 tab PO ASDIR 10/08/18 10/08/18 Unknown [Percocet 7.5mg/325mg] Tramadol HCl 50 mg PO Q8H 10/08/18 10/08/18 Unknown Allergies Allergy/AdvReac Type Severity Reaction Status Date / Time latex Allergy BLISTERS Verified 10/08/18 10:59 codeine AdvReac Unknown pt states Verified 10/08/18 10:59 "makes her feel crazy" morphine AdvReac Unknown pt "feels Verified 10/08/18 10:59 crazy" Travel Screening - Travel/Exposure Within Last 30 Days Have you traveled within the last 30 days?: No Review of Systems Constitutional: Denies: Chills, Fever Eyes: Denies: Eye discharge ENT: Denies: Congestion Respiratory: Reports: Cough, Dyspnea. Denies: Hemoptysis Cardiovascular: Denies: Arrhythmia, Chest pain Endocrine: Denies: Fatigue Gastrointestinal: Denies: Diarrhea, Vomiting Genitourinary: Denies: Dysuria Musculoskeletal: Denies: Arthralgia Neurological: Denies: Abnormal gait Past Medical History - SOCIAL HISTORY Smoking Status: Former smoker Alcohol Use: None Drug Use: None - RESPIRATORY Hx Respiratory Disorders: Yes Hx Pneumonia: Yes - CARDIOVASCULAR Hx Cardio Disorders: Yes Hx Hypertension: Yes - NEURO Hx Neuro Disorders: Yes Hx Seizures: Yes (after brain sx 1998) Comment:: aneurysms 1998 - GI Hx GI Disorders: Yes Hx Reflux: Yes Hx Hepatitis/Jaundice: Yes (hep a when child) - Hx Genitourinary Disorders: Yes Hx Bladder Problem: Yes (overactive bladder on meds with good results) Comment:: 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 - ENDOCRINE Hx Endocrine Disorders: No - MUSCULOSKELETAL Hx Musculoskeletal Disorders: Yes Hx Arthritis: Yes Comment:: right shoulder pain - PSYCH Hx Psych Problems: Yes Hx Depression: Yes (in past) - HEMATOLOGY/ONCOLOGY Hx Hematology/Oncology Disorders: Yes Hx Bruising: Yes (bruises easily) Family Medical History Any Significant Family History?: Yes Family Hx Comment (NOT TO BE USED IN PLACE OF ITEMS BELOW): cancer, heart disease, thyroid Hx Cancer: Father, Mother, Brother/Sister Physical Exam - General General Appearance: Alert, Oriented x3, Cooperative, No acute distress - Head Head exam: Atraumatic, Normocephalic, Normal inspection - Eye Eye exam: Normal appearance, PERRL - ENT Throat exam: Normal inspection. negative: Tonsillar erythema, Tonsillar exudate - Neck Neck exam: Normal inspection, Full ROM. negative: Lymphadenopathy, Tenderness - Respiratory Respiratory exam: Normal lung sounds bilaterally. negative: Respiratory distress - Cardiovascular Cardiovascular Exam: Regular rate, Normal rhythm, Normal heart sounds. negative : Diastolic murmur, Systolic murmur - GI/Abdominal GI/Abdominal exam: Soft, Normal bowel sounds. negative: Tenderness - Extremities Extremities exam: Normal inspection. negative: Calf tenderness, Pedal edema, Tenderness - Neurological Neurological exam: Alert. negative: Motor sensory deficit Course Vital Signs 10/08/18 10:52 Temperature 97.7 F Pulse Rate 67 Respiratory 20 Rate Blood Pressure 180/81 Pulse Ox 94 L - Reevaluation(s) Reevaluation #1: The patient is resting comfortably with no pain or HANNAH. She feels much better and denies any problems. 10/08/18 13:33 Reevaluation #2: The patient is doing very well at this time. She denies any pain or discomfort. I did discuss the need to stay in the hospital overnight to evaluate her heart further and the patient did agree. I then did discuss the case with Dr. Mendoza and he does accept the admission. 10/08/18 14:27 Medical Decision Making - Data Complexity MDM Data: Labs Ordered and/or Reviewed, X-Ray Ordered and/or Reviewed, EKG Ordered and/or Reviewed - Lab Data Result diagrams: 10/08/18 11:10 10/08/18 11:10 - EKG Data -: EKG Interpreted by Me EKG: No Acute Changes, Unchanged From Previous - Radiology Data Radiology results: Report reviewed (CXR: Neg CT: Neg for PE. Pos atelectasis RLL.) Disposition Disposition: Admit Clinical Impression: Pressure in chest Disposition: Still a Patient at [facility] Decision to Admit: Admit from ER Decision to Admit Date: 10/08/18 Decision to Admit Time: 14:28 Accepting Physician: Time Discussed w/Accepting Physician: 14:28 Condition: (2) Stable Forms: Patient Portal Access Time of Disposition: 14:28 Quality - Quality Measures Quality Measures: N/A - Blood Pressure Screening View Details: Yes Does Patient Have Any of the Following: Active Dx of HTN Blood Pressure Classification: Pre-Hypertensive BP Reading Systolic Measurement: 180 Diastolic Measurement: 81 Screening for High Blood Pressure: Patient Exclusion, Hx of HTN [G9744]
[2018-10-08 11:24] LABS: BASO % 0.4 % (0-6); EOS % 2.2 % (0-6); GRAN % 52.2 % (47-80); HEMATOCRIT 39.6 % (35.0-47.0); HEMOGLOBIN 12.4 gm/dl (11.6-16.0); LYMPH % 34.4 % (16-45); MEAN CORPUSCULAR HEMOGLOBIN 27.9 pg (27-33); MEAN CORPUSCULAR HGB CONC 31.3 g/dl (32-36); MEAN PLATELET VOLUME 9.5 fl (7.4-10.4); MONO % 10.8 % (0-9); PLATELET COUNT 370 K/uL (130-400); RED BLOOD COUNT 4.45 M/uL (3.80-5.40); RED CELL DISTRIBUTION WIDTH 13.6 % (11.5-14.5); WHITE BLOOD COUNT W/O DIFF 10.2 K/uL (4.2-12.2)
[2018-10-08 11:36] LABS: BLOOD UREA NITROGEN 15 mg/dL (8-23); CREATININE 0.6 mg/dL (0.5-0.9); EST GLOMERULAR FILTRATION RATE > 60 mL/min
[2018-10-08 11:39] LABS: GLUCOSE,RANDOM 95 mg/dL (74-109)
[2018-10-08 11:42] LABS: CREATINE PHOSPHOKINASE 57 U/L (26-192)
[2018-10-08 11:43] LABS: INR 1.1; PARTIAL THROMBOPLASTIN TIME 26.7 SECONDS (24.5-39.1); PROTHROMBIN TIME (PATIENT) 10.6 SECONDS (9.5-12.1)
[2018-10-08 11:44] LABS: CKMB 1.9 ng/mL (<3.77)
[2018-10-08] MEDS ORDERED: 0.9% SODIUM CHLORIDE 250ML BAG IV ONE (12:26)
[2018-10-08] MEDS ORDERED: ASPIRIN 325 MG TABLET PO ONE (14:20)
[2018-10-08] MEDS ORDERED: TRAMADOL HCL 50 MG TABLET PO PRN (15:34)
[2018-10-08] MEDS ORDERED: OXYCODONE/APAP 7.5MG/325MG TABLET PO SCH (15:34)
[2018-10-08] MEDS: ACETAMINOPHEN 500 MG TABLET PO PRN ×2 (16:13→23:03)
[2018-10-08] MEDS: Non-Formulary MISC (Omeprazole [Omeprazole] 40 MG) PO SCH (16:15)
[2018-10-08] MEDS: Non-Formulary MISC (Losartan Potassium [Losartan Potassium] 50 MG) PO SCH (16:15)
[2018-10-08] MEDS ORDERED: PATIENT OWN MED: MECLIZINE 25 MG PO PRN (16:27)
[2018-10-08] MEDS: ALBUTEROL HFA 8 GM INHALER INH SCH ×2 (18:22→22:21)
[2018-10-09] MEDS: TRAMADOL HCL 50 MG TABLET PO PRN ×3 (00:18→14:19)
[2018-10-09] MEDS: ACETAMINOPHEN 500 MG TABLET PO PRN ×2 (05:50→14:19)
[2018-10-09] MEDS: ALBUTEROL HFA 8 GM INHALER INH SCH ×5 (06:00→18:31)
--- NOTE | 2018-10-09 07:29 | RADIOLOGY REPORT ---
EXAM: CHEST, TWO VIEWS HISTORY: CHEST PAIN, RECENT ROTATOR CUFF SURGERY. TECHNIQUE: Two views of the chest were obtained. Comparison: Chest radiograph 12/16/16. FINDINGS: The cardiac silhouette is within normal size limits. The right hemidiaphragm is asymmetrically elevated. No focal pulmonary consolidation. No pleural effusion or pneumothorax. Suture anchor within the right humeral head. IMPRESSION: 1. NO ACUTE LUNG FINDINGS. 2. ASYMMETRIC ELEVATION OF THE RIGHT HEMIDIAPHRAGM. JOB [facility]BER: [id number] [facility]
--- NOTE | 2018-10-09 07:38 | CT ANGIOGRAM REPORT ---
EXAM: CT ANGIOGRAM OF THE CHEST HISTORY: SHORTNESS OF BREATH FOUR DAYS POSTOP FROM ROTATOR CUFF SURGERY. TECHNIQUE: CT angiogram of the chest was obtained with 74 ml Omnipaque 350 intravenous contrast. Additional maximum intensity projection images created on an independent workstation. Comparison: Chest radiograph 10/08/18. FINDINGS: Adequate pulmonary arterial opacification. No pulmonary artery filling defects to suggest embolism. The thoracic aorta is mildly calcified, no evidence of aneurysm or dissection. No significant pericardial fluid collection. Coronary artery calcifications are noted. No mediastinal, hilar or axillary lymphadenopathy. Prominent linear consolidation in the right lower lobe. Otherwise, no significant pulmonary opacities. A focally prominent region of subpleural fat in the left lateral chest wall region. No pleural effusion or pneumothorax. Low attenuation of the visualized hepatic parenchyma suggesting steatosis. No definite acute osseous findings. Mildly prominent nonspecific collateral vessels are noted in the anterior mediastinum and anterior left upper chest wall. IMPRESSION: 1. NO EVIDENCE OF PULMONARY EMBOLISM. 2. RIGHT LOWER LOBE CONSOLIDATION; APPEARANCE FAVORS ATELECTASIS, WITH ACUTE AIR SPACE DISEASE/PNEUMONIA NOT EXCLUDED IN THE APPROPRIATE CLINICAL SETTING. 3. CORONARY ARTERY CALCIFICATIONS. 4. HEPATIC STEATOSIS. J[facility]BER: [id number] [facility]
[2018-10-09] MEDS: Non-Formulary MISC (Omeprazole [Omeprazole] 40 MG) PO SCH (09:22)
[2018-10-09] MEDS: Non-Formulary MISC (Losartan Potassium [Losartan Potassium] 50 MG) PO SCH (09:23)
--- NOTE | 2018-10-09 09:50 | History and Physical Report ---
DATE: 10/08/2018 at 3:30 p.m. CHIEF COMPLAINT: Chest pain. HISTORY OF PRESENT ILLNESS: This 63-year-old female presented to the emergency department short of breath. She states that she has been short of breath since Monday. She has had some chest pain on and off since Monday. She noticed it more when she is lying down and she has been wheezing. She states that she does have a cough but not coughing anything up. She had a right rotator cuff surgery done [address] Aldana. She has been ambulatory at home. She denies any leg pain or swelling in her legs. PAST MEDICAL HISTORY: Hypertension, GERD. She is an ex-smoker, stopped about 4 years ago but still using nicotine vapors. She had an aneurysm in her brain in 1998 with surgery. Hepatitis as a child with jaundice. She has an overactive bladder. Arthritis of her right shoulder and that is the shoulder she had the rotator cuff surgery on. She has had depression in the past. PAST SURGICAL HISTORY: Rotator cuff surgery done [address] Aldana. Left total knee replacement, hysterectomy, ovarian tumor surgery, left cataract surgery, and brain aneurysm in 1998. MEDICATIONS: 1. Oxycodone (Percocet) 7.5 q.4-6 h. for shoulder pain. 2. Tramadol 50 mg q.8 h. p.r.n. 3. Omeprazole 40 mg daily. 4. Meclizine 25 t.i.d. p.r.n. 5. Losartan 50 mg daily. ALLERGIES: LATEX, CODEINE, MORPHINE. FAMILY HISTORY: Father and mother and brother and sister had cancer. There has been some hypothyroidism in the family and heart disease in the family too. SOCIAL HISTORY: She stopped smoking in 2013. She is on electronic vapor cigarettes. No drug or alcohol use. Influenza was given in 2018 this season. REVIEW OF SYSTEMS: HEENT: No upper respiratory infection symptoms, cough, cold, or congestion. Cardiovascular: See Chief Complaint. She has some chest heaviness worse when she lies down. Seems to be more reproducible with palpation and movement than cardiac chest pain. She has orthopnea but her vitals are good. Respiratory: She does have some wheezing. She had a breathing treatment in the emergency department which seemed to help. Will continue on Ventolin inhaler. Gastrointestinal: No nausea, vomiting, diarrhea, black stools, or bloody stools. Genitourinary: No dysuria, hematuria, frequency, or burning on urination. She has overactive bladder. Musculoskeletal: See Chief Complaint. She has arthritis in her right shoulder and she had surgery 4 days ago for rotator cuff injury. Neurological: No CVA, paralysis, or paresthesias but she had a brain aneurysm repaired in 1998. SURGICAL SCHEDULER: She had a hysterectomy as a 24-year-old. Endocrine: No diabetes or thyroid disease. Integument: No rash, ulcers, change in moles, or yellow skin. PHYSICAL EXAMINATION: VITALS: Height 5 feet 1 inch, weight 183 pounds. Temperature 97.7, pulse 62, blood pressure 169/94, respiratory rate 18, pulse ox 94% on room air. HEENT: Pupils are equal, round, and reactive to light and accommodation. Extraocular muscles are intact. Throat is clear. Nose is clear. Tympanic membranes are lino. NECK: Supple. No jugular venous distention. No hepatojugular reflux. No carotid bruits. Thyroid is smooth. CARDIOVASCULAR: Regular rate and rhythm without murmurs, clicks, rubs, or gallops. RESPIRATORY: Clear to auscultation and percussion. ABDOMEN: Soft, nontender. No hepatosplenomegaly, no masses, no tenderness. Bowel sounds are active. No bruits. EXTREMITIES: No pitting edema. No cyanosis, no clubbing. Full range of motion. Peripheral pulses are good. BREASTS: Exam deferred. GYNECOLOGICAL: Exam deferred. RECTAL: Exam deferred. NEUROLOGIC: Cranial nerves II-XII intact. No gross defects. Sensation normal, strength normal. Deep tendon reflexes equal bilaterally with Babinski negative. MENTAL STATUS: Alert and oriented x3. RADIOGRAPHIC DATA: EKG in the emergency department with no acute changes. Chest CTA was done showing right lower lobe consolidation consistent with atelectasis. No PE present. Chest x-ray was done. No acute abnormalities seen. IMPRESSION: 1. Substernal chest pain, possible musculoskeletal pain. 2. Postop day 4 for right rotator cuff surgery and in a right shoulder immobilizer. 3. Hypertension. 4. Gastroesophageal reflux disease. 5. History of overactive bladder. 6. Atelectasis of right lower lung. PLAN: Serial cardiac enzymes. Cardiology consult with Dr. Wilbert Dawson. He is here tomorrow. Follow up with Opal Aguila NP, who is now her current primary. It used to be Dr. Kearns. JEFFREY
[2018-10-09] MEDS ORDERED: ASPIRIN 325 MG TAB ENTERIC-COATED PO SCH (10:00)
--- NOTE | 2018-10-09 17:42 | Discharge Summary ---
Providers Discharge Summary Date: 10/09/18 Date of admission: 10/08/18 15:02 Expected Date of Discharge: 10/09/18 Attending physician: Jesus Mendoza Primary care physician: CHANDU Daly Consults: Consult Orders 10/08/18 15:34 Consult - Cardiology NOW Consulting Provider: STEFANO MATTHEW Physician Instructions: Reason For Exam: chest pain Does pt have current paper pattern inspector?: Unknown Physical Exam - Vital Signs Vital Signs: Vital Signs - Last 24 Hrs Temp Pulse Pulse Pulse Resp BP Pulse Ox 10/09/18 14:00 98.2 F 70 18 159/66 94 L 10/09/18 13:13 74 18 96 10/09/18 10:30 98.0 F 75 18 159/62 91 L 10/09/18 10:28 60 16 94 L 10/09/18 08:51 68 18 10/09/18 07:52 74 18 94 L 10/09/18 06:01 71 16 94 L 10/09/18 05:00 97.7 F 60 20 164/64 95 10/09/18 01:00 98.0 F 57 L 20 147/72 96 10/08/18 22:18 71 16 94 L 10/08/18 21:00 58 L 16 10/08/18 20:00 98.1 F 64 22 164/74 96 10/08/18 18:22 68 16 98 - General General Appearance: Alert, Oriented x3, Cooperative, No acute distress Limitations: No limitations - Head Head exam: Atraumatic, Normocephalic, Normal inspection - Eye Eye exam: Normal appearance, PERRL - ENT Throat exam: Normal inspection. negative: Tonsillar erythema, Tonsillar exudate - Neck Neck exam: Normal inspection, Full ROM. negative: Lymphadenopathy, Tenderness - Respiratory Respiratory exam: Normal lung sounds bilaterally. negative: Respiratory distress - Cardiovascular Cardiovascular Exam: Regular rate, Normal rhythm, Normal heart sounds. negative : Diastolic murmur, Systolic murmur Peripheral Pulses: 2+: Radial (R), Radial (L), Dorsalis Pedis (R), Dorsalis Pedis (L) - GI/Abdominal GI/Abdominal exam: Soft, Normal bowel sounds. negative: Tenderness - Rectal Rectal exam: Deferred - exam: Deferred - Extremities Extremities exam: Normal inspection, Other (Right shoulder has 3 1" incisions from recent surgery, no signs of infection). negative: Calf tenderness, Pedal edema, Tenderness - Neurological Neurological exam: Alert. negative: Motor sensory deficit Hospitalization - Hospitalization Admission Diagnosis: 1. Acute Chest Pressure - Problem List/Discharge Diagnosis (1) Pressure in chest Current Visit: Yes Status: Acute Base Code: R07.89 - OTHER CHEST PAIN Comment: 10/09/18: -sampler first unremarkable -Serial troponins negative -EKG NSR -Cardiology consult: Dr. Matthew saw patient, cleared patient of acute cardiac pain at this time, follow-up outpatient as needed (2) DVT prophylaxis Current Visit: Yes Status: Acute Base Code: [id number] - Comment: 10/09/18: -Moderate risk due to age, hospitalization, and recent surgery -SCD's while in bed -Encourage ambulation (3) Full code status Current Visit: Yes Status: Acute Base Code: Z78.9 - OTHER SPECIFIED HEALTH STATUS Comment: 10/09/18: -Full code status this admission - Hospitalization Course Disposition: Home, Self-Care Hospital Course: 10/09/18: Patient A&O x 4, resting comfortably in bed. Pain well-controlled with Ultram at this time. Patient reported 1 episode of shortness of breath/ chest pressure this morning which she reported resolved with albuterol. Serial troponins negative, EKG unremarkable, cardiology consult by Dr. Matthew. Dr. Matthew felt pain was musculoskeletal and related to recent surgery with anxiety. Patient to follow-up with cardiology outpatient as needed. Patient has been hypertensive this admission, will increase home dose of Losartan. Procedures: Imaging and X-Rays 10/08/18 11:09 CHEST 2 VIEWS [RAD] Stat 10/08/18 12:26 CHEST CTA w contrast [CTA] Stat Cardiology Procedures 10/08/18 11:09 Animal Physiology Teacher NOW EKG NOW 10/08/18 15:34 Animal Physiology Teacher .Continuous EKG QDX2@0600 Abnormal Labs: Abnormal Lab Results 10/08/18 10/08/18 10/08/18 Range/Units 11:10 11:10 11:10 MCHC 31.3 L (32-36) g/dl Monocytes % 10.8 H (0-9) % D-Dimer 1.44 H (0-0.59) mg/L FEU NT-Pro-B Natriuret Pep 437.80 H (<125) pg/mL Condition at Discharge: (2) Stable VTE Discharge VTE Reason For No Overlap Therapy: Not Indicated Discharge Medications - Discharge Medications Prescriptions: Hydroxyzine Pamoate [Vistaril] 25 mg PO QHS PRN #10 capsule PRN Reason: Anxiety Tramadol HCl [Ultram] 50 mg PO Q6H PRN #15 tablet PRN Reason: Pain - Moderate (5-7) Home Medications: Ambulatory Orders Acetaminophen 1,000 mg PO Q6H PRN 10/08/18 [Last Taken Unknown] Losartan Potassium 50 mg PO DAILY 10/08/18 [Last Taken Unknown] Omeprazole 40 mg PO DAILYAC 10/08/18 [Last Taken Unknown] Tramadol HCl 50 mg PO Q8H PRN 10/08/18 [Last Taken Unknown] Hydroxyzine Pamoate [Vistaril] 25 mg PO QHS PRN #10 capsule 10/09/18 [Last Taken Unknown] Tramadol HCl [Ultram] 50 mg PO Q6H PRN #15 tablet 10/09/18 [Last Taken Unknown] Discharge Plan - Discharge Instructions Activity at Discharge: Increase Activity as Tolerated Diet at Discharge: Regular Diet Additional Instructions: -Increase Losartan to 1 tab in the morning and 1/2 a tab at night -Take the Vistaril at bedtime as needed for anxiety. You may take this medication up to 3 times a day if needed, but it may cause drowsiness -Follow-up with Opal in the clinic in 2 weeks or sooner as needed -Follow-up with Dr. Aldana as scheduled for shoulder Quality Measures - Quality Measures Quality Measures: Documentation of Current Medications in Medical Record, Screening for High Blood Pressure and F/U Documented - Current Medications Quality Measure: Measure #130: Documentation of Current Medications Documentation of Current Medications: <Current Medications Documented/Reviewed> [G4827] - Blood Pressure Screening Quality Measure: Screening for High Blood Pressure and Follow-Up Documented Does Patient Have Any of the Following: Active Dx of HTN Blood Pressure Classification: Pre-Hypertensive BP Reading Systolic Measurement: 180 Diastolic Measurement: 81 Screening for High Blood Pressure: Patient Exclusion, Hx of HTN [G9744] - Elder Abuse Suspicion Index EASI Reference Information: Blaire VELIZ, Ilana C, Radha D, Meg Viera.Development and validation of a tool to assist physicians identification of elder abuse: The Elder Abuse Suspicion Index (EASI ). Journal of Elder Abuse and Neglect, 2008; 20 (3): 276-300.
--- NOTE | 2018-10-10 20:46 | Cardiology Consult ---
DATE OF CONSULTATION: 10/09/2018 REFERRING PHYSICIAN: DR. JESUS FAIR REASON FOR CONSULTATION: CHEST PAIN. HISTORY OF PRESENT ILLNESS: Ms. Lay is a delightful 63-year-old female with no previous history of coronary artery disease. She underwent right shoulder surgery about four days ago and was on pain medications. This morning, she started having difficulty in breathing and then started having wheezing as well. She thought she was having a reaction to the medication and decided to come to the Emergency Department. She says that when she takes a deep breath, she does feel a little pressure in the center of the chest. She denies any fevers or chills. The patient denies any pain in her calf muscles or any pedal edema. She doesn't have any history of DVT's. PAST MEDICAL HISTORY: Significant for hypertension, GERD, and arthritis. PAST SURGICAL HISTORY: Significant for rotator cuff surgery done four days ago. She has also had a left total knee replacement, hysterectomy, ovarian tumor surgery, left cataract surgery, and brain aneurysm surgery in 1998. HOME MEDICATIONS: Percocet 7.5 mg every 4 hours for shoulder pain Tramadol 50 mg every 8 hours Omeprazole 40 mg daily Meclizine 25 mg t.i.d. p.r.n. Losartan 50 mg daily ALLERGIES: THE PATIENT IS ALLERGIC TO LATEX, CODEINE, AND MORPHINE. FAMILY HISTORY: Noncontributory. SOCIAL HISTORY: The patient stopped smoking in 2013. She does use an electronic cigarette though. She denies any alcohol or illicit drug use. REVIEW OF SYSTEMS: The patient denies any fevers or chills. She had recent shoulder surgery. Denies any bleeding complications. Denies any productive cough. Denies any pedal edema. PHYSICAL EXAMINATION: VITAL SIGNS: On physical examination, the patient's vital show a blood pressure of 159/66 mmHg with a heart rate of 70 beats per minute and respiratory rate of 18 per minute. The patient is saturating at 98% on room air. GENERAL: The patient is a 63-year-old female laying comfortably in bed, not in any apparent distress. She is alert and oriented x3. HEENT: On HEENT examination, she is normocephalic/atraumatic. Pupils are equal and reactive to light. Extraocular muscles are intact. NECK: Neck is supple. CVS: On CVS examination, she has normal S1 and S2. There is no JVD. No pedal edema. RESPIRATORY: Respiratory examination reveals that her lungs are clear to auscultation bilaterally. ABDOMEN: Abdomen is soft and nontender. NEUROLOGIC: Neurologic examination is nonfocal. LABORATORY DATA: Shows a white count of 10.2. Hemoglobin 12.4. Platelet count 370. Sodium 139. Potassium 3.7. Chloride 100. BUN 15. Creatinine 0.6. N- terminal proBNP is 437, which is within normal limits for her age. Troponin is less than 0.010 x3. Creatinine kinase was within normal limits at 57 with a CK- MB of only 1.9. EKG: Her EKG doesn't show any acute changes. ASSESSMENT AND PLAN: SHORTNESS OF BREATH AND CHEST PRESSURE: The patient's chest pressure most likely is musculoskeletal from her surgery. Her cardiac enzymes and EKG showed no acute changes. I do not feel the need for any further cardiac workup at this time. She is stable from a cardiac standpoint for discharge. She will need adequate analgesia. If she continues to have difficulty in breathing and chest pain, she will contact my office for further evaluation and I will consider a stress test or an echocardiogram at that time. The patient's blood pressure is mildly elevated because of the anxiety and the chest pressure. She should be continued on her Losartan and the dose can be titrated according to her blood pressure response. Thank you very much. cc: Dr. Jesus Fair JOB NUMBER: [id number] [facility]TDD
== END 2018-10-09 18:45 | disposition home or self-care (01) ==
LOC: ER 10:51 → MEDSURG 15:02
PROVIDERS: ADMIT Emergency Medicine; ATTEND Emergency Medicine
DX: R07.89 Other chest pain (principal); R05 Cough; I10 Essential (primary) hypertension; K21.9 Gastro-esophageal reflux disease without esophagitis; N32.81 Overactive bladder; Z98.890 Other specified postprocedural states; Z87.891 Personal history of nicotine dependence
CPT/HCPCS: 71046; 71275; 80048; 82550; 82553; 83880; 84484; 85025; 85379; 85610; 85730; 93005; 93010; 94010; 94640; 99217; 99220; 99285

== ENCOUNTER 2019-07-02 04:23 | Emergency (ER) | payer MEDICAID ==
[2019-07-02] MEDS ORDERED: AMOXICILLIN 500MG CAPSULE PO ONE (04:35)
[2019-07-02] MEDS ORDERED: IBUPROFEN 600 MG TABLET PO ONE (04:35)
--- NOTE | 2019-07-02 04:37 | Emergency Department Record ---
History of Present Illness - General Chief complaint: ENT Stated complaint: RIGHT EAR PAIN Time Seen by Provider: 07/02/19 04:35 Source: Patient Mode of Arrival: Ambulatory Limitations: No limitations - History of Present Illness Initial comments: 64 yo female presents to ED for evaluation of pain to the right ear for 2 hours. Patient denies taking anything for her pain symptoms, denies drainage from the ear, and denies change in hearing. Patient denies injury or trauma to the ear. Patient denies sore throat or neck pain/stiffness symptoms. MD complaint: Ear pain Onset/Timin -: Hour(s) Location: R ear Severity: Moderate Severity scale (1-10): 7 Quality: Aching Consistency: Constant Improves with: None Worsens with: None - Related Data Previous Rx's Medication Instructions Recorded Amoxicillin [Amoxil] 875 mg PO BID #19 tab 07/02/19 Allergies Allergy/AdvReac Type Severity Reaction Status Date / Time latex Allergy BLISTERS Verified 07/02/19 04:30 codeine AdvReac Unknown pt states Verified 07/02/19 04:30 "makes her feel crazy" morphine AdvReac Unknown pt "feels Verified 07/02/19 04:30 crazy" mri AdvReac Severe DIFFICULTY Uncoded 07/02/19 04:30 BREATHING Travel Screening - Travel/Exposure Within Last 30 Days Have you traveled within the last 30 days?: No - Travel/Exposure Within Last Year Have you traveled outside the [place] in the last year?: No - Additonal Travel Details Have you been exposed to anyone with a communicable illness?: No - Travel Symptoms Symptom Screening: None Review of Systems Constitutional: Denies: Chills, Fever, Malaise, Night sweats Eyes: Denies: Eye discharge, Eye pain ENT: Reports: Ear pain. Denies: Congestion, Epistaxis Respiratory: Denies: Cough, Dyspnea Cardiovascular: Denies: Chest pain, Dyspnea on exertion Endocrine: Denies: Fatigue, Heat or cold intolerance Gastrointestinal: Denies: Abdominal pain, Nausea, Vomiting Genitourinary: Denies: Incontinence, Retention Musculoskeletal: Denies: Arthralgia, Back pain Skin: Denies: Bruising, Change in color Neurological: Denies: Abnormal gait, Confusion, Headache, Seizure Psychiatric: Denies: Anxiety Hematological/Lymphatic: Denies: Anemia, Blood Clots Past Medical History - SOCIAL HISTORY Smoking Status: Former smoker Alcohol Use: Occasional Drug Use: None - RESPIRATORY Hx Respiratory Disorders: Yes Hx Pneumonia: Yes - CARDIOVASCULAR Hx Cardio Disorders: Yes Hx Hypertension: Yes - NEURO Hx Neuro Disorders: Yes Hx Seizures: Yes (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 sx 1998) Comment:: aneurysms 1998 - GI Hx GI Disorders: Yes Hx Reflux: Yes Hx Hepatitis/Jaundice: Yes (hep a when child) - Hx Genitourinary Disorders: Yes Hx Bladder Problem: Yes (overactive bladder on meds with good results) Comment:: 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 - ENDOCRINE Hx Endocrine Disorders: No - MUSCULOSKELETAL Hx Musculoskeletal Disorders: Yes Hx Arthritis: Yes Comment:: right shoulder pain - PSYCH Hx Psych Problems: Yes Hx Depression: Yes (in past) - HEMATOLOGY/ONCOLOGY Hx Hematology/Oncology Disorders: Yes Hx Bruising: Yes (bruises easily) Family Medical History Any Significant Family History?: Yes Family Hx Comment (NOT TO BE USED IN PLACE OF ITEMS BELOW): cancer, heart disease, thyroid Hx Cancer: Father, Mother, Brother/Sister Physical Exam - General General Appearance: Alert, Oriented x3, Cooperative, Mild distress Limitations: No limitations - Head Head exam: Atraumatic, Normocephalic, Normal inspection Head exam detail: negative: Abrasion, Contusion, Kenney's sign, General tenderness, Hematoma, Laceration - Eye Eye exam: Normal appearance. negative: Conjunctival injection, Periorbital swelling, Periorbital tenderness, Scleral icterus - ENT Ear exam: Other (Right TM appears dull, erythematous). negative: Auricular hematoma, Auricular trauma Nasal Exam: negative: Active bleeding, Discharge, Dried blood Mouth exam: negative: Normal external inspection Teeth exam: negative: Dental caries, Dental tenderness # - Neck Neck exam: Normal inspection. negative: Meningismus, Tenderness - Respiratory Respiratory exam: Normal lung sounds bilaterally. negative: Rales, Respiratory distress, Rhonchi, Stridor - Cardiovascular Cardiovascular Exam: Regular rate, Normal rhythm, Normal heart sounds - GI/Abdominal GI/Abdominal exam: Soft. negative: Rebound, Rigid, Tenderness - Rectal Rectal exam: Deferred - exam: Deferred - Extremities Extremities exam: Normal inspection. negative: Pedal edema, Tenderness - Back Back exam: Denies: CVA tenderness (R), CVA tenderness (L) - Neurological Neurological exam: Alert, Normal gait, Oriented X3 - Psychiatric Psychiatric exam: Normal affect, Normal mood - Skin Skin exam: Normal color. negative: Abrasion Type of lesion: negative: abrasion Course Vital Signs 07/02/19 04:25 Temperature 98.1 F Pulse Rate 72 Respiratory 20 Rate Blood Pressure 131/87 Pulse Ox 98 - Reevaluation(s) Reevaluation #1: 07/02/19 04:40 Patient's examination appears c/w otitis media Will initiate treatment with Amoxicillin as directed. Patient appears stable for discharge at this time. Disposition Disposition: Discharge Clinical Impression: Otitis media, right Qualifiers: Otitis media type: unspecified Qualified Code(s): H66.91 - Otitis media, unspecified, right ear Disposition: Home, Self-Care Condition: (2) Stable Instructions: Otitis Media (ED) Additional Instructions: Return to ED if your symptoms worsen or if you have any concerns. Amoxicillin as directed. Follow-up with your family doctor in 3-5 days as directed. Prescriptions: Amoxicillin [Amoxil] 875 mg PO BID #19 tab Forms: Patient Portal Access Time of Disposition: 04:37 Quality - Quality Measures Quality Measures: N/A - Blood Pressure Screening Does Patient Have Any of the Following: No Blood Pressure Classification: Pre-Hypertensive BP Reading Systolic Measurement: 131 Diastolic Measurement: 87 Screening for High Blood Pressure: < Pre-Hypertensive BP, F/U Documented > [[id number]] Pre-Hypertensive Follow-up Interventions: Referral to alternative/primary care provider.
== END 2019-07-02 04:51 | disposition home or self-care (01) ==
LOC: ER 04:23
DX: H66.91 Otitis media, unspecified, right ear (principal)
CPT/HCPCS: 99283